=== PATIENT | male | born 1965 | race African-American/Black ===

== ENCOUNTER 2022-05-19 02:51 | Inpatient (IN) | payer OTHER ==
[~2022-05-19] VITALS: Ht 175.3 cm; Wt 82.0 kg
[~2022-05-19 02:51] MED LIST: ASPI81CH43 PO; CYCL-838 PO; GABA300C10 PO; LISI20TA28 PO; MET50T PO
[2022-05-19 03:41] LABS: Basophils # (auto) 0.1 10 ^3/uL (0-0.2); Eosinophils # (auto) 0.1 10 ^3/uL (0-0.8); Eosinophils % (auto) 1.1 % (0.0-7.0); Hematocrit 38.8 % (41.0-53.0); Lymphocytes # (auto) 2.7 10 ^3/uL (0.4-5.4); Lymphocytes % (auto) 49.1 % (10.0-50.0); Mean Corpuscular Hemoglobin 31.4 pg (28.0-32.0); Mean Corpuscular Hgb Conc. 33.6 g/dL (32.0-36.0); Mean Corpuscular Volume 93.5 fL (80.0-100.0); Monocytes # (auto) 0.5 10 ^3/uL (0-1.3); Monocytes % (auto) 8.8 % (0.0-12.0); Neutrophils # (auto) 2.2 10 ^3/uL (1.6-8.6); Nucleated Red Blood Cells % 0.1 %; Red Blood Cells 4.15 10^6/uL (4.5-5.90); Red Cell Distribution Width 13.3 % (11.8-14.3); White Blood Cell 5.4 10^3/uL (4.4-10.8)
[2022-05-19 03:51] LABS: Albumin 3.9 g/dL (3.4-5.0); Calcium 8.7 mg/dL (8.5-10.1); Potassium 3.6 mmol/L (3.5-5.1)
[2022-05-19 03:55] LABS: BUN/Creatinine Ratio 9.2; Bilirubin, Total 0.4 mg/dL (0.2-1.0); Total Protein 7.3 g/dL (6.4-8.2)
[2022-05-19 06:06] LABS: Urine Bacteria NONE SEEN /hpf (None Seen); Urine Blood Negative /uL (Negative); Urine Specific Gravity 1.009 (1.001-1.035); Urine WBC <1 /hpf (0 - 3)
[2022-05-19 06:15] LABS: Alcohol, Urine < 3.0 mg/dL (0-10); Amphetamine Screen, Urine NEGATIVE (NEGATIVE); Barbiturate Scree,Urine NEGATIVE (NEGATIVE); Benzodiazephine Screen, Urine NEGATIVE (NEGATIVE); Cannabinoid Screen, Urine NEGATIVE (NEGATIVE); Cocaine Screen, Urine NEGATIVE (NEGATIVE); Opiate Scree,Urine NEGATIVE (NEGATIVE); Phencyclidine Screen, Urine NEGATIVE (NEGATIVE)
[2022-05-19] MEDS ORDERED: LABETALOL HCL 5 MG/ML 4ML SYRINGE IV ONE (09:45)
[2022-05-19] MEDS ORDERED: hydrALAZINE HCL 20 MG/ML VL IV ONE (11:00)
[2022-05-19] MEDS ORDERED: MORPHINE SULFATE INJ 2 MG/ml SYRG IV PRN (15:15)
[2022-05-19] MEDS ORDERED: hydrALAZINE HCL 20 MG/ML VL IV PRN (15:15)
[2022-05-19] MEDS ORDERED: HYDROcodone-ACET 5/325MG TAB PO PRN (15:15)
[2022-05-19] MEDS ORDERED: ONDANSETRON HCL 4 MG/2 ML VIAL IV PRN (15:15)
[2022-05-19] MEDS ORDERED: DOCUSATE SOD 100 MG CAP PO PRN (15:15)
[2022-05-19 16:07] LABS: Cholesterol 203 mg/dL (< 200); Triglycerides 301 mg/dL (< 150)
[2022-05-19 16:09] LABS: HDL Cholesterol 37 mg/dL (40-59); LDL Cholesterol 133 mg/dL (< 100)
[2022-05-19] MEDS: ATORVASTATIN 20 MG TAB PO SCH (17:37)
[2022-05-19 21:54] VITALS: BP 137/74
[2022-05-19] MEDS ORDERED: ATOR-47 PO (22:04)
[2022-05-19] MEDS ORDERED: BACL20TA PO (22:04)
[2022-05-19] MEDS: SODIUM CHLOR 0.9% PF (SALINE LOCK) 10ML VIAL/SYR IV SCH (22:20)
[2022-05-19] MEDS: GABAPENTIN 100 MG CAP PO SCH (22:24)
[2022-05-19] MEDS: METOPROLOL TARTRATE 50 MG TAB PO SCH (22:24)
[2022-05-19] MEDS: ACETAMINOPHEN 325 MG TAB PO PRN (22:26)
[2022-05-20 05:00] VITALS: BP 122/79
[2022-05-20] MEDS: GABAPENTIN 100 MG CAP PO SCH ×3 (06:39→21:33)
[2022-05-20] MEDS: SODIUM CHLOR 0.9% PF (SALINE LOCK) 10ML VIAL/SYR IV SCH ×3 (06:39→21:33)
[2022-05-20] MEDS: ACETAMINOPHEN 325 MG TAB PO PRN ×2 (06:44→21:34)
[2022-05-20 09:00] VITALS: BP 136/92
[2022-05-20] MEDS: ASPirin 81 mg TAB PO SCH (09:15)
[2022-05-20] MEDS: LISINOPRIL 20 MG TAB PO SCH (09:16)
[2022-05-20] MEDS: METOPROLOL TARTRATE 50 MG TAB PO SCH ×2 (09:16→21:33)
[2022-05-20] MEDS: ATORVASTATIN 20 MG TAB PO SCH (09:16)
[2022-05-20 13:00] VITALS: BP 113/74
[2022-05-20 17:00] VITALS: BP 112/74
[2022-05-20 20:00] VITALS: BP 131/89
[2022-05-21 05:00] VITALS: BP 117/67
[2022-05-21] MEDS: ACETAMINOPHEN 325 MG TAB PO PRN ×2 (05:57→21:44)
[2022-05-21] MEDS: GABAPENTIN 100 MG CAP PO SCH ×3 (05:57→21:44)
[2022-05-21] MEDS: SODIUM CHLOR 0.9% PF (SALINE LOCK) 10ML VIAL/SYR IV SCH ×3 (07:06→21:45)
[2022-05-21 08:00] VITALS: BP 114/69
[2022-05-21] MEDS: ATORVASTATIN 20 MG TAB PO SCH (09:26)
[2022-05-21] MEDS: ASPirin 81 mg TAB PO SCH (09:26)
[2022-05-21] MEDS: LISINOPRIL 20 MG TAB PO SCH (09:29)
[2022-05-21] MEDS: METOPROLOL TARTRATE 50 MG TAB PO SCH ×2 (09:29→21:44)
[2022-05-21 12:00] VITALS: BP 93/63
[2022-05-21 16:00] VITALS: BP 131/83
[2022-05-21 20:00] VITALS: BP 117/80
[2022-05-21 22:00] VITALS: BP 117/80
[2022-05-22 05:00] VITALS: BP 115/71
[2022-05-22] MEDS: GABAPENTIN 100 MG CAP PO SCH (05:31)
[2022-05-22] MEDS: ACETAMINOPHEN 325 MG TAB PO PRN (05:31)
[2022-05-22] MEDS: SODIUM CHLOR 0.9% PF (SALINE LOCK) 10ML VIAL/SYR IV SCH (06:54)
[2022-05-22 07:00] VITALS: BP 117/80
[2022-05-22 07:31] VITALS: BP 92/58
[2022-05-22 08:00] VITALS: BP 117/80
[2022-05-22] MEDS: ASPirin 81 mg TAB PO SCH (09:48)
[2022-05-22] MEDS: ATORVASTATIN 20 MG TAB PO SCH (09:48)
[2022-05-22] MEDS ORDERED: GABA300C10 PO (10:06)
[2022-05-22] MEDS ORDERED: LISI20TA28 PO (10:06)
[2022-05-22] MEDS: METOPROLOL TARTRATE 50 MG TAB PO SCH (10:28)
[2022-05-22] MEDS: LISINOPRIL 20 MG TAB PO SCH (10:29)
[2022-05-22 12:13] VITALS: BP 118/81
[2022-05-22 12:23] VITALS: BP 118/85
[2022-05-22 14:01] LABS: Folate (Folic Acid) 5.21 ng/mL (5.38-24)
== END 2022-05-22 13:40 | disposition home or self-care (01) | DRG 69 ==
LOC: ER 02:51 → TELE 15:27 → TELE-EAST 22:02
PROVIDERS: ADMIT Internal Medicine; ATTEND Family Medicine
DX: G45.9 Transient cerebral ischemic attack, unspecified (principal); Z20.822 Contact with and (suspected) exposure to COVID-19; E11.9 Type 2 diabetes mellitus without complications; E78.00 Pure hypercholesterolemia, unspecified; G89.29 Other chronic pain; E11.40 Type 2 diabetes mellitus with diabetic neuropathy, unspecified; M48.02 Spinal stenosis, cervical region; I10 Essential (primary) hypertension; Z79.82 Long term (current) use of aspirin; Z79.899 Other long term (current) drug therapy; Z83.3 Family history of diabetes mellitus; Z98.1 Arthrodesis status
CPT/HCPCS: 36415; 70450; 70551; 71045; 72141; 80053; 80061; 80307; 81001; 82607; 82746; 82962; 84443; 84484; 85025; 93005; 93306; 93886; 95819; 96374; G0378

== ENCOUNTER 2022-11-27 06:47 | Emergency (ER) | payer OTHER ==
[~2022-11-27] VITALS: Ht 175.3 cm; Wt 75.0 kg
[~2022-11-27 06:47] MED LIST changes: +ATOR-47 PO; +BACL20TA PO
[2022-11-27 07:19] VITALS: BP 147/96
[2022-11-27 07:47] LABS: Urine Bacteria NONE SEEN /hpf (None Seen); Urine Blood Negative /uL (Negative); Urine Specific Gravity 1.005 (1.001-1.035); Urine WBC 5 /hpf (0 - 3)
[2022-11-27] MEDS ORDERED: LIDOCAINE 2% JELLY 11ml (GLYDO) UR ONE (09:00)
[2022-11-27] MEDS ORDERED: ACETAMINOPHEN 500 MG TAB PO ONE (09:30)
[2022-11-27] MEDS ORDERED: TAM04C PO (09:45)
== END 2022-11-27 09:49 | disposition home or self-care (01) ==
LOC: ER 06:47
DX: N39.0 Urinary tract infection, site not specified (principal); R33.9 Retention of urine, unspecified; E11.9 Type 2 diabetes mellitus without complications; E78.5 Hyperlipidemia, unspecified; I10 Essential (primary) hypertension; Z98.890 Other specified postprocedural states; Z79.899 Other long term (current) drug therapy; Z88.6 Allergy status to analgesic agent
CPT/HCPCS: 51702; 81001

== ENCOUNTER 2022-11-29 13:06 | Emergency (ER) | payer OTHER ==
[~2022-11-29] VITALS: Ht 175.3 cm; Wt 75.0 kg
[~2022-11-29 13:06] MED LIST changes: +TAM04C PO
[2022-11-29] MEDS ORDERED: SODIUM CHLORIDE 0.9% 1,000 ML IV ONE ×2 (13:45→21:00)
[2022-11-29 13:55] LABS: Eosinophils # (auto) 0.1 10 ^3/uL (0-0.8); Lymphocytes # (auto) 2.9 10 ^3/uL (0.4-5.4); Lymphocytes % (auto) 21.7 % (10.0-50.0); Neutrophils # (auto) 9.5 10 ^3/uL (1.6-8.6)
[2022-11-29 14:03] LABS: Basophils # (auto) 0.2 10 ^3/uL (0-0.2); Basophils % (auto) 1.3 % (0.0-2.0); Eosinophils % (auto) 0.4 % (0.0-7.0); Hematocrit 40.2 % (41.0-53.0); Hemoglobin 13.4 g/dL (13.5-17.5); Mean Corpuscular Hemoglobin 30.2 pg (28.0-32.0); Mean Corpuscular Hgb Conc. 33.3 g/dL (32.0-36.0); Mean Corpuscular Volume 90.8 fL (80.0-100.0); Monocytes # (auto) 0.7 10 ^3/uL (0-1.3); Monocytes % (auto) 5.2 % (0.0-12.0); Neutrophils % (auto) 71.4 % (37.0-80.0); Nucleated Red Blood Cells % 0.2 %; Red Blood Cells 4.43 10^6/uL (4.5-5.90); Red Cell Distribution Width 13.8 % (11.8-14.3); White Blood Cell 13.3 10^3/uL (4.4-10.8)
[2022-11-29 14:41] LABS: Albumin 3.4 g/dL (3.4-5.0); Calcium 9.5 mg/dL (8.5-10.1); Magnesium 2.4 mg/dL (1.6-2.6)
[2022-11-29 14:45] LABS: BUN/Creatinine Ratio 14.7 (10.0-20.0); Bilirubin, Total 0.8 mg/dL (0.2-1.0); Total Protein 7.7 g/dL (6.4-8.2)
[2022-11-29 15:46] LABS: Urine Bacteria NONE SEEN /hpf (None Seen); Urine Blood 1+ /uL (Negative); Urine Mucus FEW (None Seen); Urine Specific Gravity 1.024 (1.001-1.035); Urine WBC 8 /hpf (0 - 3)
[2022-11-29] MEDS ORDERED: BACDST PO (18:04)
[2022-11-29] MEDS ORDERED: IOHEXOL 350 MG/ML 100ML IJ ONE (18:07)
[2022-11-29] MEDS ORDERED: ENOXAPARIN SOD 80 MG/0.8ML SYRINGE SC ONE (18:15)
[2022-11-29 21:53] VITALS: BP 119/81
== END 2022-11-29 22:59 | disposition home or self-care (01) ==
LOC: ER 13:06
DX: R33.9 Retention of urine, unspecified (principal); N39.0 Urinary tract infection, site not specified; E11.9 Type 2 diabetes mellitus without complications; E78.5 Hyperlipidemia, unspecified; I10 Essential (primary) hypertension; Z79.899 Other long term (current) drug therapy; Z98.890 Other specified postprocedural states
CPT/HCPCS: 36415; 71045; 71275; 80053; 81001; 82962; 83735; 84484; 85025; 85379; 93005; 96360; 96361; 96372; 99285; J1650; J7030; Q9967